=== PATIENT | female | born 2000 | race Caucasian/White ===

== ENCOUNTER 2021-10-15 01:40 | Emergency (ER) | payer BC ==
[2021-10-15 01:49] VITALS: BP 91/52; PULSE 70; RESP 16; TEMP 98.3; BMI 23.9
[2021-10-15] MEDS ORDERED: ONDANSETRON *ODT* 4 MG TABLET SL ONE (03:10)
[2021-10-15] MEDS ORDERED: ONDANSETRON *ODT* 4 MG TABLET ONE (03:13)
== END 2021-10-15 03:43 | disposition home or self-care (01) ==
LOC: FER 01:40
DX: F10.920 Alcohol use, unspecified with intoxication, uncomplicated (principal)
CPT/HCPCS: 99283-25; Q0162